=== PATIENT | female | born 1975 | race African-American/Black ===

== ENCOUNTER 2016-11-13 10:01 | Inpatient (IN) | payer MEDICARE, MEDICAID ==
[~2016-11-13] VITALS: Ht 165.1 cm; Wt 95.7 kg
[2016-11-13] MEDS ORDERED: ALBUTEROL (10:24)
[2016-11-13 11:19] LABS: CLARITY URINE CLEAR (CLEAR); COLOR URINE YELLOW (YELLOW); GLUCOSE URINE NEGATIVE (NEGATIVE); KETONES URINE NEGATIVE (NEGATIVE); LEUKOCYTE ESTERASE URINE 3+ (NEGATIVE); NITRITE URINE NEGATIVE (NEGATIVE); OCCULT BLOOD URINE NEGATIVE (NEGATIVE); PROTEIN URINE NEGATIVE (NEGATIVE); SPECIFIC GRAVITY URINE 1.016 (1.005-1.030); UROBILINOGEN URINE 0.2 E.U./dL (0.2-1.0)
[2016-11-13] MEDS ORDERED: SODIUM CHLORIDE 0.9% 1,000 ML IV ONE (11:22)
[2016-11-13] MEDS ORDERED: IPRATROPIUM BROMIDE (0.02%) 0.5MG/2.5ML NEB HHN STA (11:22)
[2016-11-13] MEDS ORDERED: ALBUTEROL (0.083%) 2.5MG/3ML NEB HHN STA (11:22)
[2016-11-13] MEDS ORDERED: METHYLPREDNISOLONE SOD SUCC 125 MG/2 ML VIAL IV STA (11:22)
[2016-11-13 11:32] LABS: RBC URINE NONE SEEN /hpf (0-2); SQUAMOUS EPITHELIAL CELL URINE 2+ /lpf (RARE/1+)
[2016-11-13 11:33] LABS: BACTERIA URINE TRACE
[2016-11-13 11:55] LABS: PARTIAL THROMBOPLASTIN TIME 25.6 sec (24.0-34.0); PROTHROMBIN TIME 10.7 sec
[2016-11-13 12:01] LABS: ANION GAP 11; CALCIUM 8.5 mg/dL (8.5-10.1); CARBON DIOXIDE 31 mEq/L (21-32); CHLORIDE 105 mEq/L (98-107); HCG SCREEN NEGATIVE; INDEX HEMOLYSI 1 (1-3); INDEX ICTERIC 1 (1-4); INDEX LIPEMIC 1 (1-3); NT PRO B-TYPE NATRIURETIC PEP 313 pg/mL (5-125); TROPONIN I < 0.02 ng/mL (0.00-0.04); UREA NITROGEN BLOOD 8 mg/dL (7-21); eGFR > 60 mL/min (>60)
[2016-11-13 12:03] LABS: BASOPHILS % 0.6 % (0.0-2.0); EOSINOPHILS % 1.3 % (0.0-5.0); HEMATOCRIT. 40.4 % (36.0-48.0); HEMOGLOBIN. 13.2 g/dL (12.0-16.0); LYMPHOCYTES % 34.9 % (20.0-50.0); MEAN CORPUSCULAR HEMOGLOBIN 27.3 pg (28.0-32.0); MEAN CORPUSCULAR HGB CONC 32.6 g/dL (31.0-37.0); MEAN CORPUSCULAR VOLUME 83.6 fL (81.0-99.0); MEAN PLATELET VOLUME 8.6 fl (7.4-10.4); MONOCYTES % 8.3 % (2.0-8.0); NEUTROPHILS % 54.9 % (40.0-76.0); PLATELET 273 x1000/uL (130-400); RED BLOOD CELL COUNT 4.84 mill/uL (4.2-5.4); RED CELL DISTRIBUTION WIDTH 14.8 % (11.6-14.6); WHITE BLOOD COUNT 6.2 x1000/uL (4.5-11.0)
[2016-11-13] MEDS ORDERED: ASPIRIN 325MG TABLET PO ONE (12:15)
[2016-11-13] MEDS ORDERED: MAGNESIUM/ALUMINUM HYDROXIDE/SIMETHICONE 30ML UDC PO PRN (12:45)
[2016-11-13] MEDS ORDERED: LORAZEPAM 2MG/ML CPJ IV PRN (12:45)
[2016-11-13] MEDS ORDERED: ENOXAPARIN 40MG/0.4ML SYR SUBCUT SCH (12:45)
[2016-11-13] MEDS ORDERED: CLONIDINE 0.1MG TABLET PO PRN (12:45)
[2016-11-13] MEDS ORDERED: ONDANSETRON HCL 4MG/2ML VIAL IV PRN (12:45)
[2016-11-13] MEDS ORDERED: LEVOFLOXACIN 500MG PREMIX 100 ML IV ONE (13:00)
[2016-11-13] MEDS ORDERED: ENOXAPARIN 40MG/0.4ML SYR SUBCUT ONE (13:00)
[2016-11-13] MEDS: AZITHROMYCIN 500 MG TABLET PO SCH (13:11)
[2016-11-13] MEDS: PREDNISONE 20MG TABLET PO SCH (13:11)
[2016-11-13 13:41] LABS: *AMPHETAMINES SCREEN URINE NEGATIVE (NEGATIVE); *BARBITURATES SCREEN URINE NEGATIVE (NEGATIVE); *BENZODIAZEPINES SCREEN URINE NEGATIVE (NEGATIVE); *COCAINE SCREEN URINE NEGATIVE (NEGATIVE); CANNABINOID URINE SCREEN NEGATIVE (NEGATIVE); ECSTASY MDMA SCREEN URINE NEGATIVE (NEGATIVE); METHADONE URINE SCREEN NEGATIVE (NEGATIVE); PHENCYCLIDINE URINE SCREEN NEGATIVE (NEGATIVE)
[2016-11-13 13:46] LABS: OPIATES URINE SCREEN PRESUMTIVE POSITIVE (NEGATIVE)
[2016-11-13 15:29] LABS: ANION GAP 11; CALCIUM 8.4 mg/dL (8.5-10.1); CARBON DIOXIDE 30 mEq/L (21-32); CHLORIDE 105 mEq/L (98-107); CREATINE KINASE 178 IU/L (26-192); CREATINE KINASE MB FRACTION 1.1 ng/mL (0.5-3.6); INDEX HEMOLYSI 1 (1-3); INDEX ICTERIC 1 (1-4); INDEX LIPEMIC 1 (1-3); PHENYTOIN 4.2 ug/mL (10-20); UREA NITROGEN BLOOD 7 mg/dL (7-21); eGFR > 60 mL/min (>60)
[2016-11-13] MEDS ORDERED: PHEN100C4 PO (18:46)
[2016-11-13] MEDS ORDERED: ZOLP5TAB2 PO (18:46)
[2016-11-13] MEDS ORDERED: KEPP500 PO (18:46)
[2016-11-13 20:00] VITALS: BP 125/74
[2016-11-13 20:43] VITALS: BP 125/74
[2016-11-13 21:00] VITALS: BP 125/74
[2016-11-13] MEDS: IPRATROPIUM/ALBUTEROL 0.5-3(2.5)MG/3ML NEB INH PRN (21:05)
[2016-11-13] MEDS: BUDESONIDE 0.5MG/2ML NEB HHN SCH (21:05)
[2016-11-13] MEDS: PHENYTOIN SODIUM EXTENDED 100MG CAPSULE PO SCH (21:25)
[2016-11-13] MEDS: LEVETIRACETAM 500MG TABLET PO SCH (21:25)
[2016-11-13] MEDS: ENOXAPARIN 30MG/0.3ML SYR SUBCUT SCH (21:26)
[2016-11-13] MEDS: ACETAMINOPHEN 325MG TABLET PO PRN (21:26)
[2016-11-13] MEDS: ZOLPIDEM TARTRATE 5MG TABLET PO PRN (22:39)
[2016-11-14 00:02] VITALS: BP 109/70
[2016-11-14 04:00] VITALS: BP 103/70
[2016-11-14 07:14] LABS: THYROID STIMULATING HORMONE 0.77 uIU/mL (0.36-3.74)
[2016-11-14] MEDS: IPRATROPIUM/ALBUTEROL 0.5-3(2.5)MG/3ML NEB INH PRN ×2 (07:52→20:49)
[2016-11-14] MEDS: BUDESONIDE 0.5MG/2ML NEB HHN SCH ×2 (07:52→21:00)
[2016-11-14 08:00] VITALS: BP 116/74
[2016-11-14] MEDS: PREDNISONE 20MG TABLET PO SCH (08:55)
[2016-11-14] MEDS: ENOXAPARIN 30MG/0.3ML SYR SUBCUT SCH ×2 (08:55→21:28)
[2016-11-14] MEDS: AZITHROMYCIN 500 MG TABLET PO SCH (08:55)
[2016-11-14] MEDS: ACETAMINOPHEN 325MG TABLET PO PRN (10:11)
[2016-11-14 12:00] VITALS: BP 108/66
[2016-11-14 16:00] VITALS: BP 111/65
[2016-11-14 20:00] VITALS: BP 104/73
[2016-11-14] MEDS ORDERED: MAGNESIUM HYDROXIDE 400MG/5ML 30ML UDC PO PRN (20:15)
[2016-11-14] MEDS ORDERED: DOCUSATE SODIUM 100MG CAPSULE PO PRN (20:15)
[2016-11-14] MEDS: LEVETIRACETAM 500MG TABLET PO SCH (21:29)
[2016-11-14] MEDS: PHENYTOIN SODIUM EXTENDED 100MG CAPSULE PO SCH (21:29)
[2016-11-14] MEDS: ATORVASTATIN CALCIUM 20MG TABLET PO SCH (21:29)
[2016-11-15] VITALS: BP 100/56
[2016-11-15] MEDS: IPRATROPIUM/ALBUTEROL 0.5-3(2.5)MG/3ML NEB INH PRN ×4 (00:43→16:25)
[2016-11-15 04:00] VITALS: BP 102/52
[2016-11-15 07:04] LABS: BASOPHILS % 0.4 % (0.0-2.0); EOSINOPHILS % 0.5 % (0.0-5.0); HEMATOCRIT. 37.4 % (36.0-48.0); HEMOGLOBIN. 12.3 g/dL (12.0-16.0); LYMPHOCYTES % 39.4 % (20.0-50.0); MEAN CORPUSCULAR HEMOGLOBIN 27.3 pg (28.0-32.0); MEAN CORPUSCULAR VOLUME 82.8 fL (81.0-99.0); MEAN PLATELET VOLUME 8.3 fl (7.4-10.4); MONOCYTES % 6.2 % (2.0-8.0); NEUTROPHILS % 53.5 % (40.0-76.0); PLATELET 300 x1000/uL (130-400); RED BLOOD CELL COUNT 4.52 mill/uL (4.2-5.4); RED CELL DISTRIBUTION WIDTH 15.3 % (11.6-14.6); WHITE BLOOD COUNT 8.4 x1000/uL (4.5-11.0)
[2016-11-15 08:00] VITALS: BP 106/70
[2016-11-15 08:17] LABS: ANION GAP 12; CALCIUM 8.4 mg/dL (8.5-10.1); CARBON DIOXIDE 26 mEq/L (21-32); CHLORIDE 106 mEq/L (98-107); INDEX HEMOLYSI 1 (1-3); INDEX ICTERIC 1 (1-4); INDEX LIPEMIC 1 (1-3); PHENYTOIN 8.1 ug/mL (10-20); UREA NITROGEN BLOOD 11 mg/dL (7-21); eGFR > 60 mL/min (>60)
[2016-11-15] MEDS: ENOXAPARIN 30MG/0.3ML SYR SUBCUT SCH ×2 (08:21→21:14)
[2016-11-15] MEDS: PREDNISONE 20MG TABLET PO SCH (08:21)
[2016-11-15] MEDS: AZITHROMYCIN 500 MG TABLET PO SCH (08:21)
[2016-11-15] MEDS: BUDESONIDE 0.5MG/2ML NEB HHN SCH ×2 (09:20→20:30)
[2016-11-15] MEDS ORDERED: PHENYTOIN SODIUM EXTENDED 100MG CAPSULE PO SCH (12:30)
[2016-11-15 16:00] VITALS: BP 101/61
[2016-11-15 20:00] VITALS: BP 102/69
[2016-11-15] MEDS: GUAIFENESIN 600MG ER TABLET PO SCH (21:13)
[2016-11-15] MEDS: ATORVASTATIN CALCIUM 20MG TABLET PO SCH (21:13)
[2016-11-15] MEDS: PHENYTOIN SODIUM EXTENDED 100MG CAPSULE PO SCH (21:13)
[2016-11-15] MEDS: LEVETIRACETAM 500MG TABLET PO SCH (21:13)
[2016-11-15] MEDS: ZOLPIDEM TARTRATE 5MG TABLET PO PRN (21:13)
[2016-11-16] VITALS: BP 90/55
[2016-11-16 04:00] VITALS: BP 102/65
[2016-11-16 05:56] LABS: BASOPHILS % 0.3 % (0.0-2.0); EOSINOPHILS % 0.6 % (0.0-5.0); HEMATOCRIT. 38.7 % (36.0-48.0); HEMOGLOBIN. 12.4 g/dL (12.0-16.0); LYMPHOCYTES % 40.3 % (20.0-50.0); MEAN CORPUSCULAR HEMOGLOBIN 26.9 pg (28.0-32.0); MEAN CORPUSCULAR HGB CONC 31.9 g/dL (31.0-37.0); MEAN CORPUSCULAR VOLUME 84.2 fL (81.0-99.0); MEAN PLATELET VOLUME 8.3 fl (7.4-10.4); MONOCYTES % 7.5 % (2.0-8.0); NEUTROPHILS % 51.3 % (40.0-76.0); PLATELET 287 x1000/uL (130-400); RED CELL DISTRIBUTION WIDTH 14.7 % (11.6-14.6); WHITE BLOOD COUNT 9.3 x1000/uL (4.5-11.0)
[2016-11-16 06:15] LABS: ANION GAP 13; CALCIUM 8.2 mg/dL (8.5-10.1); CARBON DIOXIDE 27 mEq/L (21-32); CHLORIDE 105 mEq/L (98-107); INDEX HEMOLYSI 1 (1-3); INDEX ICTERIC 1 (1-4); INDEX LIPEMIC 1 (1-3); PHENYTOIN 13.8 ug/mL (10-20); UREA NITROGEN BLOOD 12 mg/dL (7-21); eGFR > 60 mL/min (>60)
[2016-11-16 08:00] VITALS: BP 102/61
[2016-11-16] MEDS: BUDESONIDE 0.5MG/2ML NEB HHN SCH ×2 (08:42→20:01)
[2016-11-16] MEDS: IPRATROPIUM/ALBUTEROL 0.5-3(2.5)MG/3ML NEB INH PRN (08:42)
[2016-11-16] MEDS: GUAIFENESIN 600MG ER TABLET PO SCH ×2 (08:59→21:33)
[2016-11-16] MEDS: PREDNISONE 20MG TABLET PO SCH (08:59)
[2016-11-16] MEDS: AZITHROMYCIN 500 MG TABLET PO SCH (08:59)
[2016-11-16] MEDS: ENOXAPARIN 30MG/0.3ML SYR SUBCUT SCH ×2 (09:01→21:33)
[2016-11-16 12:00] VITALS: BP 118/76
[2016-11-16] MEDS: ACETAMINOPHEN 325MG TABLET PO PRN (12:20)
[2016-11-16] MEDS ORDERED: ALPRAZOLAM 0.25 MG TABLET PO PRN (13:15)
[2016-11-16 16:00] VITALS: BP 107/68
[2016-11-16 20:00] VITALS: BP 113/66
[2016-11-16] MEDS: ZOLPIDEM TARTRATE 5MG TABLET PO PRN (21:32)
[2016-11-16] MEDS: PHENYTOIN SODIUM EXTENDED 100MG CAPSULE PO SCH (21:33)
[2016-11-16] MEDS: ATORVASTATIN CALCIUM 20MG TABLET PO SCH (21:33)
[2016-11-16] MEDS: LEVETIRACETAM 500MG TABLET PO SCH (21:39)
[2016-11-17] VITALS: BP 109/66
[2016-11-17 04:00] VITALS: BP 108/64
[2016-11-17 06:47] LABS: BASOPHILS % 0.3 % (0.0-2.0); EOSINOPHILS % 0.7 % (0.0-5.0); HEMATOCRIT. 39.3 % (36.0-48.0); HEMOGLOBIN. 12.8 g/dL (12.0-16.0); LYMPHOCYTES % 38.8 % (20.0-50.0); MEAN CORPUSCULAR HEMOGLOBIN 27.3 pg (28.0-32.0); MEAN CORPUSCULAR HGB CONC 32.5 g/dL (31.0-37.0); MEAN CORPUSCULAR VOLUME 83.8 fL (81.0-99.0); MEAN PLATELET VOLUME 8.1 fl (7.4-10.4); MONOCYTES % 8.2 % (2.0-8.0); PLATELET 291 x1000/uL (130-400); RED BLOOD CELL COUNT 4.69 mill/uL (4.2-5.4); RED CELL DISTRIBUTION WIDTH 14.8 % (11.6-14.6); WHITE BLOOD COUNT 9.1 x1000/uL (4.5-11.0)
[2016-11-17 07:14] LABS: CHLORIDE 104 mEq/L (98-107); INDEX HEMOLYSI 1 (1-3); INDEX ICTERIC 1 (1-4); INDEX LIPEMIC 1 (1-3)
[2016-11-17 07:39] LABS: ANION GAP 16; CALCIUM 8.5 mg/dL (8.5-10.1); CARBON DIOXIDE 25 mEq/L (21-32); UREA NITROGEN BLOOD 12 mg/dL (7-21); eGFR > 60 mL/min (>60)
[2016-11-17 08:08] VITALS: BP 118/74
[2016-11-17] MEDS: GUAIFENESIN 600MG ER TABLET PO SCH ×2 (08:24→20:51)
[2016-11-17] MEDS: AZITHROMYCIN 500 MG TABLET PO SCH (08:24)
[2016-11-17] MEDS: PREDNISONE 20MG TABLET PO SCH (08:24)
[2016-11-17] MEDS: ENOXAPARIN 30MG/0.3ML SYR SUBCUT SCH ×2 (08:24→20:51)
[2016-11-17] MEDS: BUDESONIDE 0.5MG/2ML NEB HHN SCH ×2 (08:31→20:59)
[2016-11-17 12:07] VITALS: BP 117/74
[2016-11-17 15:57] VITALS: BP 125/72
[2016-11-17 16:11] LABS: BG BASE EXCESS 0.9 mmol/L (-2.0-2.0); BG CARBOXYHEMOGLOBIN 0.7 % (0.5-1.5); BG FRACTION INSPIRED OXYGEN 28; BG HCO3 ACT 26.3 mmol/L (22.0-26.0); BG METHEMOGLOBIN 0.4 % (0.0-1.5); BG OXYHEMOGLOBIN 97.9 % (94.0-97.0); BG PCO2 44.8 mmHg (35.0-45.0); BG PH 7.387 (7.350-7.450); BG PO2 139.8 mmHg (75.0-100.0); BG SAMPLE SITE LEFT RADIAL; BG TOTAL HEMOGLOBIN 13.9 g/dL (12.0-18.0); BG VENT MODE NASAL CANNULA
[2016-11-17 20:00] VITALS: BP 111/71
[2016-11-17] MEDS: ATORVASTATIN CALCIUM 20MG TABLET PO SCH (20:50)
[2016-11-17] MEDS: LEVETIRACETAM 500MG TABLET PO SCH (20:51)
[2016-11-17] MEDS: PHENYTOIN SODIUM EXTENDED 100MG CAPSULE PO SCH (20:51)
[2016-11-17] MEDS: ZOLPIDEM TARTRATE 5MG TABLET PO PRN (20:56)
[2016-11-17] MEDS: IPRATROPIUM/ALBUTEROL 0.5-3(2.5)MG/3ML NEB INH PRN (20:59)
[2016-11-18] VITALS: BP 119/70
[2016-11-18 04:00] VITALS: BP 102/76
[2016-11-18 08:00] VITALS: BP 129/74
[2016-11-18] MEDS: AZITHROMYCIN 500 MG TABLET PO SCH (09:43)
[2016-11-18] MEDS: PREDNISONE 20MG TABLET PO SCH (09:43)
[2016-11-18] MEDS: GUAIFENESIN 600MG ER TABLET PO SCH (09:43)
[2016-11-18] MEDS: ENOXAPARIN 30MG/0.3ML SYR SUBCUT SCH (09:44)
[2016-11-18] MEDS: BUDESONIDE 0.5MG/2ML NEB HHN SCH (10:58)
[2016-11-18] MEDS: IPRATROPIUM/ALBUTEROL 0.5-3(2.5)MG/3ML NEB INH PRN (10:58)
[2016-11-18 12:00] VITALS: BP 108/70
[2016-11-18 16:00] VITALS: BP 134/78
[2016-11-18 16:12] VITALS: BP 108/108
== END 2016-11-18 17:00 | disposition home or self-care (01) | DRG 193 ==
LOC: ER 11:19 → 6WST 12:14
PROVIDERS: ADMIT Internal Medicine; ATTEND Internal Medicine
DX: J18.9 Pneumonia, unspecified organism (principal); J96.00 Acute respiratory failure, unspecified whether with hypoxia or hypercapnia; J44.1 Chronic obstructive pulmonary disease with (acute) exacerbation; N39.0 Urinary tract infection, site not specified; R56.9 Unspecified convulsions
CPT/HCPCS: 36415; 36600; 71010; 80048; 80061; 80185; 80305; 81001; 82375; 82550; 82553; 82805; 83880; 84443; 84484; 84703; 85025; 85379; 85610; 85730; 87070; 87086; 93005; 93306; 93970; 94640; 96372; 96374; 96375; 99285; C1893; J1650; J1956; J2930; J7030; J7512; J7620; J7626

== ENCOUNTER 2017-02-20 13:45 | Emergency (ER) | payer MEDICARE, MEDICAID ==
[~2017-02-20] VITALS: Ht 165.1 cm; Wt 97.0 kg
[~2017-02-20 13:45] MED LIST: ALBUTEROL; KEPP500 PO; PHEN100C4 PO; ZOLP5TAB2 PO
[2017-02-20] MEDS ORDERED: KETOROLAC 30MG/ML VIAL IV STA (15:11)
[2017-02-20 16:38] LABS: EOSINOPHILS % 1.2 % (0.0-5.0); HEMOGLOBIN. 14.2 g/dL (12.0-16.0); LYMPHOCYTES % 45.6 % (20.0-50.0); MEAN CORPUSCULAR HEMOGLOBIN 27.1 pg (28.0-32.0); MEAN CORPUSCULAR VOLUME 82.4 fL (81.0-99.0); MEAN PLATELET VOLUME 8.9 fl (7.4-10.4); MONOCYTES % 6.9 % (2.0-8.0); NEUTROPHILS % 45.3 % (40.0-76.0); PLATELET 254 x1000/uL (130-400); RED BLOOD CELL COUNT 5.22 mill/uL (4.2-5.4); RED CELL DISTRIBUTION WIDTH 13.7 % (11.6-14.6)
[2017-02-20 16:50] LABS: CARBON DIOXIDE 25 mEq/L (21-32); CHLORIDE 107 mEq/L (98-107); TROPONIN I < 0.02 ng/mL (0.00-0.04)
[2017-02-20 17:51] VITALS: BP 138/86
== END 2017-02-20 18:40 | disposition home or self-care (01) ==
LOC: ER 13:46
DX: M75.52 Bursitis of left shoulder (principal); I50.9 Heart failure, unspecified; J44.9 Chronic obstructive pulmonary disease, unspecified; G40.909 Epilepsy, unspecified, not intractable, without status epilepticus; J45.909 Unspecified asthma, uncomplicated; Z88.0 Allergy status to penicillin
CPT/HCPCS: 36415; 71010; 73030; 80053; 84484; 85025; 93005; 93971; 96374; 99285; J1885

== ENCOUNTER 2018-06-06 11:16 | Emergency (ER) | payer MEDICARE, MEDICAID ==
[~2018-06-06] VITALS: Ht 165.1 cm; Wt 100.0 kg
[2018-06-06 12:33] LABS: BASOPHILS % 0.9 % (0.0-2.0); EOSINOPHILS % 1.4 % (0.0-5.0); HEMATOCRIT. 44.1 % (36.0-48.0); HEMOGLOBIN. 14.6 g/dL (12.0-16.0); LYMPHOCYTES % 45.7 % (20.0-50.0); MEAN CORPUSCULAR HEMOGLOBIN 27.8 pg (28.0-32.0); MEAN PLATELET VOLUME 8.7 fl (7.4-10.4); MONOCYTES % 9.3 % (2.0-8.0); NEUTROPHILS % 42.7 % (40.0-76.0); PLATELET 328 x1000/uL (130-400); RED BLOOD CELL COUNT 5.25 mill/uL (4.2-5.4)
[2018-06-06 12:39] LABS: CHLORIDE 104 mEq/L (98-107)
[2018-06-06 12:44] LABS: HCG SCREEN NEGATIVE
[2018-06-06 12:59] LABS: CARBAMAZEPINE < 0.5 ug/mL (4-12); PHENOBARBITAL < 2.1 ug/mL (15.0-40.0); VALPROIC ACID < 3.0 ug/mL (50-100)
[2018-06-06] MEDS ORDERED: NITROGLYCERIN 0.4MG TABLET SL SL PRN (15:30)
[2018-06-06 15:51] VITALS: BP 142/82
== END 2018-06-06 16:15 | disposition home or self-care (01) ==
LOC: ER 13:18
DX: R07.89 Other chest pain (principal); I50.9 Heart failure, unspecified; J45.909 Unspecified asthma, uncomplicated; G40.909 Epilepsy, unspecified, not intractable, without status epilepticus; J44.9 Chronic obstructive pulmonary disease, unspecified; R00.1 Bradycardia, unspecified; Z88.0 Allergy status to penicillin; Z93.0 Tracheostomy status; Z91.81 History of falling
CPT/HCPCS: 36415; 71045; 73080; 73090; 73110; 80053; 80156; 80165; 80184; 80185; 81025; 83880; 84484; 84703; 85025; 93005; 99285

== ENCOUNTER 2025-04-10 12:07 | Emergency (ER) | payer OTHER, MEDICAID ==
[~2025-04-10] VITALS: Ht 165.1 cm; Wt 80.0 kg
[2025-04-10 12:11] VITALS: O2SAT 99
[2025-04-10 12:37] LABS: BASOPHILS % 0.9 % (0.0-2.0); EOSINOPHILS % 2.1 % (0.0-5.0); HEMATOCRIT. 45.0 % (36.0-48.0); HEMOGLOBIN. 14.7 g/dL (12.0-16.0); LYMPHOCYTES % 43.9 % (20.0-50.0); MEAN PLATELET VOLUME 7.3 fl (7.4-10.4); MONOCYTES % 11.1 % (2.0-8.0); NEUTROPHILS % 42.0 % (40.0-76.0); PLATELET 342 x1000/uL (130-400); RED BLOOD CELL COUNT 5.31 mill/uL (4.2-5.4); RED CELL DISTRIBUTION WIDTH 14.4 % (11.6-14.6)
[2025-04-10 12:50] LABS: CREATININE 1.7 mg/dL (0.6-1.0); UREA NITROGEN BLOOD 13.0 mg/dL (9-23)
[2025-04-10 14:55] LABS: INR 1.0
[2025-04-10 15:05] LABS: TROPONIN I HIGH SENSITIVITY < 4 ng/L (3.0-34)
[2025-04-10 15:27] LABS: COLOR URINE YELLOW (YELLOW); GLUCOSE URINE TRACE (NEGATIVE); KETONES URINE 1+ (NEGATIVE); LEUKOCYTE ESTERASE URINE TRACE (NEGATIVE); NITRITE URINE NEGATIVE (NEGATIVE); OCCULT BLOOD URINE TRACE (NEGATIVE); PH URINE 6.0 (4.5-8.0); PROTEIN URINE 3+ (NEGATIVE); SPECIFIC GRAVITY URINE 1.038 (1.005-1.030); UROBILINOGEN URINE 1.0 E.U./dL (0.2-1.0)
[2025-04-10 16:03] LABS: CLARITY URINE HAZY (CLEAR)
[2025-04-10 16:05] LABS: BACTERIA URINE 1+; MUCUS URINE 1+ /lpf (< = 2+); RBC URINE 0-2 /hpf (0-2); SQUAMOUS EPITHELIAL CELL URINE 2+ /lpf (RARE/1+)
[2025-04-10] MEDS ORDERED: SULF1TAB48 MT (16:09)
[2025-04-10 16:50] VITALS: BP 123/81; PULSE 69; RESP 14; TEMP 36.7; O2SAT 98
== END 2025-04-10 16:51 | disposition home or self-care (01) ==
LOC: ER 12:07
DX: G62.9 Polyneuropathy, unspecified (principal); R42 Dizziness and giddiness; I10 Essential (primary) hypertension; Z88.0 Allergy status to penicillin; Z79.899 Other long term (current) drug therapy; Z98.890 Other specified postprocedural states; Z86.59 Personal history of other mental and behavioral disorders
CPT/HCPCS: 36415; 71045; 80048; 81003; 83880; 84484; 85025; 85379; 93005; 99285